=== PATIENT | female | born 1995 | race Caucasian/White ===

== ENCOUNTER 2019-04-07 20:47 | Emergency (ER) | payer SELFPAY ==
[~2019-04-07] VITALS: Ht 152.4 cm; Wt 58.1 kg
[2019-04-07 21:30] VITALS: BP 129/74
--- NOTE | 2019-04-07 21:33 | NUR ---
TO LOBBY A/W BED VIA W/C.
--- NOTE | 2019-04-07 22:30 | NUR ---
PT TAKEN TO BED 08 BY WHEELCHAIR.
[2019-04-07] MEDS ORDERED: IBUPROFEN 800 MG TAB PO ONE (23:15)
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
--- NOTE | 2019-04-07 23:25 | NUR ---
EMT AT BEDSIDE
[2019-04-07 23:33] VITALS: BP 129/74
--- NOTE | 2019-04-07 23:33 | NUR ---
Patient discharged with v/s stable. Written and verbal after care instructions given and explained. Patient alert, oriented and verbalized understanding of instructions. Ambulatory with CRUTCHES. All questions addressed prior to discharge. ID band removed. Patient advised to follow up with PMD. Rx of MOTRIN WAS given. Patient educated on indication of medication including possible reaction and side effects. Opportunity to ask questions provided and answered.
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
== END 2019-04-07 23:33 | disposition home or self-care (01) ==
LOC: MED 20:47
DX: S92.325A Nondisplaced fracture of second metatarsal bone, left foot, initial encounter for closed fracture (principal); W01.0XXA Fall on same level from slipping, tripping and stumbling without subsequent striking against object, initial encounter; Y93.89 Activity, other specified; Y92.89 Other specified places as the place of occurrence of the external cause; Y99.8 Other external cause status
CPT/HCPCS: 29515; 73630; 99283